=== PATIENT | female | born 1950 | race Caucasian/White ===

== ENCOUNTER 2021-07-08 19:42 | Day surgery (SDCO) | payer MEDICARE, OTHER ==
[~2021-07-08] VITALS: Ht 165.1 cm; Wt 86.8 kg
[2021-07-08 20:08] LABS: BASOPHIL 0.8 % (0-2); EOSINOPHIL 2.1 % (0-7); HCT 38.5 % (37.0-47.0); HGB 12.6 g/dl (12.5-16.0); LYMPHOCYTE 28.3 % (15-48); MCH 29.9 pg (25.0-31.0); MCHC 32.7 g/dL (32.0-36.0); MCV 91.4 fL (78.0-100.0); NEUTROPHIL 58.5 % (41-80); NRBC 0; PLT 213 K/uL (150-400); RBC 4.21 M/uL (4.20-5.40); RDW 14.5 % (11.5-14.0); WBC 6.3 K/uL (4.0-10.5)
[2021-07-08 20:28] LABS: INR 1.26 (0.9-1.2); PROTHROMBIN TIME 15.1 SECONDS (11.8-13.4); PTT 34.3 SECONDS (24.4-34.7)
[2021-07-08 20:29] LABS: D-DIMER < 0.27 ug/mLFEU (0.00-0.41)
[2021-07-08 20:42] LABS: ALBUMIN 3.7 g/dL (3.4-5.0); BILIRUBIN - TOTAL 0.5 mg/dL (0.2-1.0); BUN/CREAT RATIO (CALC) 11.6 RATIO; CREATININE 0.69 mg/dL (0.51-0.95); POTASSIUM 3.2 mmol/L (3.5-5.1); TOTAL PROTEIN 6.7 g/dL (6.4-8.2)
[2021-07-08 23:47] LABS: CKMB 1.1 ng/mL (0.0-3.6)
[2021-07-09] MEDS ORDERED: AMLODIPINE BES2.5 MG PO (01:21)
[2021-07-09] MEDS ORDERED: TRIAMTERENE-HC1 EACH PO (01:23)
[2021-07-09] MEDS ORDERED: ELIQUIS5 MG PO (02:28)
[2021-07-09] MEDS ORDERED: CRESTOR5 M1 PO (02:32)
[2021-07-09] MEDS ORDERED: TRAZODONE 50MG50 MG PO (02:34)
[2021-07-09] MEDS ORDERED: NITROQUIK SL0.4 MG SL (02:39)
[2021-07-09] MEDS ORDERED: ASPIRIN81 MG PO (02:43)
[2021-07-09] MEDS ORDERED: PROTONIX40 MG PO (02:45)
[2021-07-09] MEDS ORDERED: TRAMADOL HCL50 MG PO (02:46)
[2021-07-09] MEDS ORDERED: CYMBALTA 30MG C30 MG PO (02:47)
[2021-07-09 06:25] LABS: BASOPHIL 0.8 % (0-2); EOSINOPHIL 2.3 % (0-7); HCT 37.1 % (37.0-47.0); HGB 12.1 g/dl (12.5-16.0); MCH 29.8 pg (25.0-31.0); MCHC 32.6 g/dL (32.0-36.0); MCV 91.4 fL (78.0-100.0); MONOCYTE 7.8 % (0-12); MPV 11.1 fL (6.0-9.5); NEUTROPHIL 57.8 % (41-80); NRBC 0; PLT 218 K/uL (150-400); RBC 4.06 M/uL (4.20-5.40); RDW 14.5 % (11.5-14.0); WBC 7.4 K/uL (4.0-10.5)
[2021-07-09 06:34] LABS: ALBUMIN 3.6 g/dL (3.4-5.0); BILIRUBIN - TOTAL 0.6 mg/dL (0.2-1.0); BUN/CREAT RATIO (CALC) 11.7 RATIO; CREATININE 0.6 mg/dL (0.51-0.95); GLOBULIN (CALCULATION) 3.1 g/dL; MAGNESIUM 1.8 mg/dL (1.8-2.4); POTASSIUM 3.8 mmol/L (3.5-5.1); TOTAL PROTEIN 6.7 g/dL (6.4-8.2)
--- NOTE | 2021-07-09 15:58 | NUR ---
07/09/21 Ms. Cordero lives at home with her spouse. She is independent in the home and community, The couple are able to meet their financial obligations. - No discahrge planning needs were identified.
[2021-07-10 06:17] LABS: BASOPHIL 0.8 % (0-2); EOSINOPHIL 2.6 % (0-7); HCT 36.1 % (37.0-47.0); HGB 11.6 g/dl (12.5-16.0); LYMPHOCYTE 25.7 % (15-48); MCH 29.5 pg (25.0-31.0); MCHC 32.1 g/dL (32.0-36.0); MCV 91.9 fL (78.0-100.0); MONOCYTE 10.7 % (0-12); MPV 11.2 fL (6.0-9.5); NEUTROPHIL 59.9 % (41-80); NRBC 0; PLT 187 K/uL (150-400); RBC 3.93 M/uL (4.20-5.40); RDW 14.5 % (11.5-14.0); WBC 6.1 K/uL (4.0-10.5)
[2021-07-10 06:46] LABS: ALBUMIN 3.5 g/dL (3.4-5.0); BILIRUBIN - TOTAL 0.6 mg/dL (0.2-1.0); BUN/CREAT RATIO (CALC) 12.9 RATIO; CREATININE 0.7 mg/dL (0.51-0.95); GLOBULIN (CALCULATION) 2.7 g/dL; MAGNESIUM 1.9 mg/dL (1.8-2.4); TOTAL PROTEIN 6.2 g/dL (6.4-8.2)
== END 2021-07-10 23:45 | disposition other institution (70) ==
LOC: FER 19:42 → FTCU 22:28
PROVIDERS: Emergency Medicine Emergency Medical Services; Family Medicine; Nurse Practitioner; ADMIT Internal Medicine
DX: I25.110 Atherosclerotic heart disease of native coronary artery with unstable angina pectoris (principal); I21.4 Non-ST elevation (NSTEMI) myocardial infarction; I11.9 Hypertensive heart disease without heart failure; I48.0 Paroxysmal atrial fibrillation; I73.00 Raynaud's syndrome without gangrene; M79.7 Fibromyalgia; K21.9 Gastro-esophageal reflux disease without esophagitis; E87.6 Hypokalemia; R77.8 Other specified abnormalities of plasma proteins; I08.0 Rheumatic disorders of both mitral and aortic valves; E66.9 Obesity, unspecified; Z68.31 Body mass index [BMI] 31.0-31.9, adult; Z79.01 Long term (current) use of anticoagulants; Z79.82 Long term (current) use of aspirin; Z79.899 Other long term (current) drug therapy; Z88.5 Allergy status to narcotic agent; Z88.8 Allergy status to other drugs, medicaments and biological substances; Z95.5 Presence of coronary angioplasty implant and graft; Z20.822 Contact with and (suspected) exposure to COVID-19
CPT/HCPCS: 36415; 71045; 80053; 80061; 82553; 83735; 83880; 84443; 84484; 85025; 85379; 85610; 85730; 93005; 94010; G0378; J1650; J2270; J2405; U0002